=== PATIENT | male | born 1980 | race Caucasian/White ===

== ENCOUNTER 2017-04-27 11:56 | Emergency (ER) | payer OTHER ==
[2017-04-27 14:22] LABS: INFLUENZA A AMPLIFICATION NEGATIVE (NEGATIVE); INFLUENZA B AMPLIFICATION NEGATIVE (NEGATIVE)
== END 2017-04-27 15:00 | disposition home or self-care (01) ==
LOC: M ED 11:56
DX: J02.9 Acute pharyngitis, unspecified (principal); B34.9 Viral infection, unspecified; L40.9 Psoriasis, unspecified; F17.210 Nicotine dependence, cigarettes, uncomplicated
CPT/HCPCS: 87502

== ENCOUNTER → 2024-01-25 | Outpatient (REF) | payer OTHER ==
[~2024-01-25] MED LIST: ALEV1TAB PO; MAGICMW MT
[2024-01-25 18:06] LABS: HEMOGLOBIN A1c 5.4 % (4.0-6.0)
[2024-01-25 18:20] LABS: BASO # 0.1 10^3/uL (0.0-0.2); BASO % 1.4 % (0.0-1.0); EOS # 0.4 10^3/uL (0.0-0.5); EOS % 6.6 % (0.0-3.0); HEMATOCRIT 40.7 % (42.0-52.0); HEMOGLOBIN 14.2 g/dl (13.5-17.5); LYMPH # 1.5 10^3/uL (1.5-5.0); LYMPH % 26.7 % (24.0-44.0); MEAN CORPUSCULAR HEMOGLOBIN 31.6 pg (27.0-33.0); MEAN CORPUSCULAR HGB CONC 34.9 g/dl (32.0-36.5); MEAN CORPUSCULAR VOLUME 90.6 fl (80.0-96.0); MONO # 0.5 10^3/uL (0.0-0.8); MONO % 8.6 % (2.0-8.0); NEUTROPHILS # 3.2 10^3/uL (1.5-8.5); NEUTROPHILS % 56.3 % (36.0-66.0); PLATELET COUNT, AUTOMATED 311 10^3/uL (150-450); RED BLOOD COUNT 4.49 10^6/uL (4.30-6.10); WHITE BLOOD COUNT 5.6 10^3/uL (4.0-10.0)
[2024-01-25 18:26] LABS: PSA SCREENING 0.34 NG/ML (< 4.00)
[2024-01-25 18:28] LABS: ALBUMIN 3.7 G/DL (3.2-5.2); ALKALINE PHOSPHATASE 90 U/L (46-116); ALT/SGPT 28 U/L (7.0-40); APPEARANCE, URINE CLEAR (CLEAR); AST/SGOT 15 U/L (<34); BACTERIA, URINE AUTO NEGATIVE (NEGATIVE); BILIRUBIN, URINE AUTO NEGATIVE (NEGATIVE); BILIRUBIN,TOTAL 0.8 MG/DL (0.3-1.2); BLOOD UREA NITROGEN 20 MG/DL (9-23); BLOOD, URINE BLOOD NEGATIVE (NEGATIVE); CALCIUM LEVEL 9.4 MG/DL (8.5-10.1); CARBON DIOXIDE LEVEL 29 MMOL/L (20-31); CHLORIDE LEVEL 111 MMOL/L (98-107); CHOLESTEROL LEVEL 147 MG/DL (<200); CHOLESTEROL RISK RATIO 2.69 (<5); COLOR, URINE COLORLESS (YELLOW); CREATININE FOR GFR 0.88 MG/DL (0.70-1.30); GLOMERULAR FILTRATION RATE > 60.0 (>60); GLUCOSE, FASTING 93 MG/DL (60-100); GLUCOSE, URINE (UA) AUTO NEGATIVE (NEGATIVE); HDL CHOLESTEROL 54.5 MG/DL (>40); KETONE, URINE AUTO NEGATIVE (NEGATIVE); LDL CHOLESTEROL 80.3 MG/DL (<100); LEUKOCYTE ESTERASE, URINE AUTO NEGATIVE (NEGATIVE); NITRITE, URINE AUTO NEGATIVE (NEGATIVE); NON-HDL-C 92.5 MG/DL; POTASSIUM SERUM 4.7 MMOL/L (3.5-5.1); PROTEIN, URINE AUTO NEGATIVE (NEGATIVE); RBC, URINE AUTO 0 /HPF (0-3); SODIUM LEVEL 141 MMOL/L (136-145); SPECIFIC GRAVITY URINE AUTO 1.003 (1.002-1.035); SQUAMOUS EPITHELIAL CELL UR AU 0 /HPF (0-6); TOTAL PROTEIN 6.3 G/DL (5.7-8.2); TRIGLYCERIDES LEVEL 61 MG/DL (<150); UROBILINOGEN, URINE AUTO 0.2 mg/dL (0.0-2.0); WBC, URINE AUTO 1 /HPF (0-3)
[2024-01-25 18:30] LABS: FREE T4 1.37 NG/DL (0.89-1.76)
[2024-01-25 18:31] LABS: THYROID STIMULATING HORMONE 0.739 uIU/ML (0.55-4.78)
== END ==
LOC: M SFHCCLAY 09:01
PROVIDERS: ATTEND Nurse Practitioner Family
DX: N52.9 Male erectile dysfunction, unspecified (principal); F41.8 Other specified anxiety disorders; F39 Unspecified mood [affective] disorder; R39.11 Hesitancy of micturition; Z13.220 Encounter for screening for lipoid disorders; Z13.1 Encounter for screening for diabetes mellitus